=== PATIENT | female | born 1985 | race Caucasian/White ===

== ENCOUNTER 2024-12-12 16:52 | Emergency (ER) | payer OTHER ==
[~2024-12-12] VITALS: Ht 162.6 cm; Wt 86.2 kg
[2024-12-12] MEDS ORDERED: LORAZEPAM 1 MG TABLET ONE (20:09)
[2024-12-12] MEDS: LORAZEPAM 1 MG TABLET PO ONE (20:14)
[2024-12-12 20:36] LABS: PREGNANCY TEST URINE QUAL NEGATIVE (NEGATIVE)
[2024-12-12] MEDS ORDERED: CHLO25CA22 PO (21:17)
[2024-12-12 21:28] VITALS: BP 142/89; TEMP 98.3; O2SAT 98
== END 2024-12-12 21:29 | disposition home or self-care (01) ==
LOC: ER 16:58
DX: F41.0 Panic disorder [episodic paroxysmal anxiety] (principal); F15.10 Other stimulant abuse, uncomplicated; F19.11 Other psychoactive substance abuse, in remission; F17.290 Nicotine dependence, other tobacco product, uncomplicated; E86.0 Dehydration
CPT/HCPCS: 84703-TC